=== PATIENT | female | born 1960 | race Caucasian/White ===

== ENCOUNTER → 2017-10-21 | Outpatient (CLI) | payer OTHER ==
[~2017-10-21] MED LIST: BUDE10.2 IH; BUPR100T8 PO; CODE30TA PO; ETOD400T PO; GUAI120L35 PO; TIOT18CA IH; TRAM50TA PO
--- NOTE | 2017-10-22 08:47 | RAD ---
DATE: 10/21/2017 EXAM: MAMMO TROY SCREENING BILATERAL HISTORY: Routine screening COMPARISON: 12/02/2015, 12/21/2013 This study was interpreted with the benefit of Computerized Aided Detection (CAD). Breast Density: FATTY The breast parenchyma is primarily fatty replaced. Breast parenchyma level density A. FINDINGS: 2-D and 3-D tomosynthesis imaging was performed in CC and MLO projections. 2 smooth right breast nodules are unchanged. There are 2 smooth retroareolar nodules on the left. The more laterally positioned of these 2 nodules measures 6.7 mm and appears to be slightly larger than on 12/21/2013 study. No other new or enlarging breast densities are seen. No suspicious microcalcifications are evident. IMPRESSION: A small left retroareolar breast nodule appears to have increased slightly in size since previous studies. Sonographic evaluation is suggested. BI-RADS CATEGORY: 0 INCOMPLETE: NEEDS ADDITIONAL IMAGING EVALUATION AND/OR PRIOR MAMMOGRAMS FOR COMPARISON. RECOMMENDED FOLLOW-UP: ADD ADDITIONAL IMAGING PQRS compliance statement: Patient information was entered into a reminder system with a target due date for the next mammogram. Mammography is a sensitive method for finding small breast cancers, but it does not detect them all and is not a substitute for careful clinical examination. A negative mammogram does not negate a clinically suspicious finding and should not result in delay in biopsying a clinically suspicious abnormality. "Our facility is accredited by the [employer] Mammography Program."
== END | disposition home or self-care (01) ==
LOC: MAMMO 13:55
PROVIDERS: ATTEND Internal Medicine
DX: Z12.31 Encounter for screening mammogram for malignant neoplasm of breast (principal); J44.9 Chronic obstructive pulmonary disease, unspecified
CPT/HCPCS: 77063; 77067

== ENCOUNTER → 2017-10-24 | Outpatient (CLI) | payer OTHER ==
--- NOTE | 2017-10-24 14:36 | RAD ---
Left breast ultrasound, 10/24/2017: History: Suspicious screening mammogram The mammograms demonstrated a smooth nodule located anteriorly just superior and lateral to the level of the nipple. A targeted ultrasound exam of that region demonstrates a smooth oval-shaped 4 x 4 x 5 mm nodule at the 2:00 periareolar level. This appears to correspond in location to the mammographic abnormality. There are low level internal echoes. No internal color flow is seen. It is slightly wider than tall. No definite posterior acoustic enhancement or shadowing is seen. This is most likely complicated cyst or fibroadenoma. A circumscribed malignancy cannot be excluded. IMPRESSION: Probably benign left breast nodule. Follow-up beginning with left mammography and ultrasound in 6 months is suggested. BI-RADS 3-probably benign findings
== END | disposition home or self-care (01) ==
LOC: US 12:53
PROVIDERS: ATTEND Internal Medicine
DX: R92.8 Other abnormal and inconclusive findings on diagnostic imaging of breast (principal)
CPT/HCPCS: 76641